=== PATIENT | female | born 1950 | race Caucasian/White ===

== ENCOUNTER → 2016-05-16 | Outpatient (CLI) | payer OTHER, MEDICARE ==
[~2016-05-16] MED LIST: ASCORBIC ACID100 MG PO; AZITHROMYCIN500 M1 PO; BIOTIN2500 MCG PO; CALCIUM 500 MG1 EACH PO; ENDOCET 5-3251 EACH PO; GUAIFENESIN AC473 ML PO; HYDROMET SYRUP480 ML PO; LEVOFLOXACIN750 MG PO; LOVENOX40 MG/0.4 SC; PLAQUENIL200 MG PO; PREDNISONE10 MG PO; RANITIDINE HCL150 MG PO; SYMBICORT60 INHALAT IH; SYSTANE ULTRA 015 ML BOTH EYES; TUMS500 MG PO; VITAMIN C1000 MG PO; VITAMIN D31000 UNIT PO; VITAMIN D35000 UNIT PO
== END | disposition home or self-care (01) ==
DX: M17.11 Unilateral primary osteoarthritis, right knee (principal); M25.561 Pain in right knee; M25.661 Stiffness of right knee, not elsewhere classified; R26.2 Difficulty in walking, not elsewhere classified; M62.89 Other specified disorders of muscle
CPT/HCPCS: 97110 GP; 97150 GO; 97161 GP; 97165 GO; G8978 GP; G8979 GP; G8980 GP; G8987 GO; G8988 GO; G8989 GO

== ENCOUNTER 2016-06-06 05:24 | Inpatient (IN) | payer OTHER, MEDICARE ==
[~2016-06-06] VITALS: Ht 170.2 cm; Wt 84.0 kg
[~2016-06-06 05:24] MED LIST changes: -ENDOCET 5-3251 EACH PO; -LOVENOX40 MG/0.4 SC
[2016-06-06 06:02] VITALS: BP 126/72
[2016-06-06 11:57] LABS: HEMATOCRIT 35.1 % (36.0-46.0); MCH 27.5 PG (29.0-34.0); MCHC 32.5 G/DL (30.0-36.0); MCV 84.8 FL (83-99); MEAN PLAT.VOLUME 11.6 uM^3 (9.5-12.4); PLATELET COUNT 185 K/uL (156-360); RBC DIS.WIDTH-CV 14.5 % (11.8-14.6); RBC DIS.WIDTH-SD 45.2 % (39-53); RED BLOOD COUNT 4.14 M/uL (3.80-5.20)
[2016-06-06 13:04] VITALS: BP 139/66
[2016-06-06 15:42] VITALS: BP 120/65
[2016-06-06 19:00] VITALS: BP 159/72
[2016-06-07] VITALS: BP 156/74
[2016-06-07 04:00] VITALS: BP 161/72
[2016-06-07 05:27] LABS: HEMATOCRIT 36.2 % (36.0-46.0); MCV 83.8 FL (83-99)
[2016-06-07 05:49] LABS: ANION GAP 10 MEQ/L (2-14); CHLORIDE 102 MEQ/L (99-109); GFR ESTIMATE (CALCULATED) > 59 mL/min/; GLUCOSE 133 mg/dL (70-99); POTASSIUM 4.1 MEQ/L (3.7-5.4); SAMPLE HEMOLYSIS CHECK 0; SAMPLE ICTERIC CHECK 0; SAMPLE LIPEMIA CHECK 0; SODIUM 132 MEQ/L (136-147); UREA NITROGEN (BUN) 20 mg/dL (9-23)
[2016-06-07 08:00] VITALS: BP 148/66
[2016-06-07] MEDS ORDERED: ENDOCET 5-3251 EACH PO (08:25)
[2016-06-07] MEDS ORDERED: LOVENOX40 MG/0.4 SC (08:25)
[2016-06-07 12:00] VITALS: BP 137/66
[2016-06-07 16:00] VITALS: BP 135/63
[2016-06-07 19:55] VITALS: BP 142/67
[2016-06-08 00:40] VITALS: BP 122/58
[2016-06-08 03:52] VITALS: BP 142/63
[2016-06-08 04:57] LABS: HEMATOCRIT 33.1 % (36.0-46.0); MCV 82.1 FL (83-99)
[2016-06-08 05:05] LABS: CHLORIDE 105 mEq/L (99-109); POTASSIUM 3.9 mEq/L (3.7-5.4); SODIUM 133 mEq/L (136-147)
[2016-06-08 05:07] LABS: GLUCOSE 131 mg/dL (70-99)
[2016-06-08 05:08] LABS: ANION GAP 7 MEQ/L (2-14)
[2016-06-08 05:11] LABS: GFR ESTIMATE (CALCULATED) 59 mL/min/
[2016-06-08 05:12] LABS: UREA NITROGEN (BUN) 18 mg/dL (9-23)
[2016-06-08 08:00] VITALS: BP 133/62
[2016-06-08 12:00] VITALS: BP 143/76
[2016-06-08 14:29] VITALS: BP 107/56
== END 2016-06-08 14:29 | DRG 470 ==
LOC: 2SOUTH 05:24 → 3WEST 12:50 → 2SOUTH 15:16 → 3WEST 06-08 14:29
PROVIDERS: Orthopaedic Surgery; Physician Assistant
PROC: 0SRC0J9 Replacement of Right Knee Joint with Synthetic Substitute, Cemented, Open Approach (ICD-10-PCS; principal; 2016-06-06)
DX: M17.11 Unilateral primary osteoarthritis, right knee (principal); M32.9 Systemic lupus erythematosus, unspecified; K21.9 Gastro-esophageal reflux disease without esophagitis
CPT/HCPCS: 73560; 80048; 85014; 85018; 85027; J0690; J1170; J1650; J2250; J2405; J2765; J3010; J7050

== ENCOUNTER 2016-07-24 20:16 | Emergency (ER) | payer OTHER, MEDICARE ==
[~2016-07-24] VITALS: Ht 170.2 cm; Wt 81.5 kg
[~2016-07-24 20:16] MED LIST changes: +ENDOCET 5-3251 EACH PO; +LOVENOX40 MG/0.4 SC
[2016-07-24 21:33] LABS: HEMATOCRIT 38.3 % (36.0-46.0); MCH 27.2 PG (29.0-34.0); MCHC 31.3 G/DL (30.0-36.0); MCV 86.8 FL (83-99); MEAN PLAT.VOLUME 11.2 uM^3 (9.5-12.4); PLATELET COUNT 269 K/uL (156-360); RBC DIS.WIDTH-CV 14.3 % (11.8-14.6); RED BLOOD COUNT 4.41 M/uL (3.80-5.20); WHITE BLOOD COUNT 5.6 K/uL (4.1-10.2)
[2016-07-24 21:41] LABS: CHLORIDE 105 mEq/L (99-109); POTASSIUM 4.4 mEq/L (3.7-5.4); SODIUM 140 mEq/L (136-147)
[2016-07-24 21:43] LABS: GLUCOSE 105 mg/dL (70-99)
[2016-07-24 21:44] LABS: ANION GAP 10 MEQ/L (2-14)
[2016-07-24 21:47] LABS: GFR ESTIMATE (CALCULATED) 40 mL/min/
[2016-07-24 21:48] LABS: UREA NITROGEN (BUN) 22 mg/dL (9-23)
[2016-07-24] MEDS ORDERED: SKELAXIN800 MG PO (22:59)
[2016-07-24 23:17] VITALS: BP 125/69
== END 2016-07-24 23:19 | disposition home or self-care (01) ==
LOC: EME 20:16
PROVIDERS: Physician Assistant
DX: R25.2 Cramp and spasm (principal); E86.0 Dehydration; M25.561 Pain in right knee; M79.661 Pain in right lower leg; M79.89 Other specified soft tissue disorders; Z96.651 Presence of right artificial knee joint; K21.9 Gastro-esophageal reflux disease without esophagitis
CPT/HCPCS: 80048; 85027; 93971; 99281; 99285